=== PATIENT | male | born 1955 | race Caucasian/White ===

== ENCOUNTER 2017-02-13 10:21 | Emergency (ER) | payer OTHER, BC | END 2017-02-13 12:34 | disposition home or self-care (01) | LOC: ER1 10:21 | DX: S83.92XA Sprain of unspecified site of left knee, initial encounter (principal); I10 Essential (primary) hypertension; X50.1XXA Overexertion from prolonged static or awkward postures, initial encounter; Y92.69 Other specified industrial and construction area as the place of occurrence of the external cause; Y99.0 Civilian activity done for income or pay | CPT/HCPCS: 73564; 99283 ==